=== PATIENT | male | born 1945 | race Hispanic/Latino ===

== ENCOUNTER 2018-07-05 15:38 | Inpatient (IN) | payer OTHER ==
[~2018-07-05] VITALS: Ht 175.3 cm; Wt 52.3 kg
[2018-07-05 16:31] LABS: BASOPHILS % (AUTO) 0.4 % (0.0-5.0); EOSINOPHILS % (AUTO) 0.6 % (0.0-8.0); HEMATOCRIT 30.2 % (42-54); LYMPHOCYTES % (AUTO) 7.8 % (21.0-51.0); MEAN CORPUSCULAR HEMOGLOBIN 33.9 pg (27.0-33.0); MEAN CORPUSCULAR VOLUME 102.6 fL (79-99); MONOCYTES % (AUTO) 3.9 % (3.0-13.0); NEUTROPHILS % (AUTO) 87.3 % (40.0-77.0); NUCLEATED RED BLOOD CELLS 0.1 % (0.0-0.19); PLATELET COUNT (AUTO) 204 K/uL (130-400); RED BLOOD CELL COUNT(AUTO) 2.94 MIL/uL (4.50-6.20); RED CELL DISTRIBUTION WIDTH 20.9 % (11.0-15.5); WHITE BLOOD COUNT (AUTO) 7.5 K/uL (4.8-10.8)
[2018-07-05 16:39] LABS: INR 1.58 (0.85-1.15); PARTIAL THROMBOPLASTIN TIME 39.4 SEC (26.3-35.5); PROTHROMBIN TIME 16.4 SEC (9.6-11.6)
[2018-07-05 16:44] LABS: CREATININE 3.3 mg/dL (0.5-1.5); POTASSIUM 3.7 mmol/L (3.5-5.1)
[2018-07-05 16:55] LABS: ALBUMIN 1.3 g/dL (3.5-5.0); BILIRUBIN,TOTAL 0.7 mg/dL (0.2-1.0); TOTAL PROTEIN, SERUM 4.7 g/dL (6.0-8.3)
[2018-07-05] MEDS ORDERED: ONDANSETRON HCL 4 MG/2 ML VIAL ONE (17:10)
[2018-07-05] MEDS ORDERED: MIDODRINE HCL 5 MG TABLET ONE (18:42)
[2018-07-05] MEDS ORDERED: MEROPENEM 1 GM VIAL ONE (19:12)
[2018-07-05] MEDS ORDERED: VANCOMYCIN 1GM+NS 250ML 250 ML IV ONE (19:47)
[2018-07-05 20:29] VITALS: BP 73/46
[2018-07-05] MEDS ORDERED: ALBUMIN (HUMAN) 25% 100 ML IV ONE (20:54)
[2018-07-05] MEDS ORDERED: ACETAMINOPHEN 325 MG TAB PO PRN ×2 (21:00)
[2018-07-05] MEDS ORDERED: ALBUMIN (HUMAN) 25% 100 ML IV SCH (21:00)
[2018-07-05] MEDS ORDERED: VANCOMYCIN PROTOCOL PER PHARMACY IV SCH (21:00)
[2018-07-05] MEDS ORDERED: ONDANSETRON HCL 4 MG/2 ML VIAL IVP PRN (21:00)
[2018-07-05] MEDS ORDERED: SODIUM CHLORIDE 0.9% 10 ML VIAL IVP PRN (21:00)
[2018-07-05] MEDS ORDERED: GLUCAGON 1MG KIT 1 MG ML IM PRN (21:15)
[2018-07-05] MEDS ORDERED: DEXTROSE 50%-WATER 50 ML DISP.SYRIN IV PRN (21:15)
[2018-07-05] MEDS ORDERED: HEPARIN SODIUM 5000UNIT/ML 1ML VIAL IJ SCH (21:45)
[2018-07-05 23:47] VITALS: BP 95/43
[2018-07-06] MEDS ORDERED: LEVO25TA9 PO (03:00)
[2018-07-06] MEDS ORDERED: SEVE800T7 PO (03:00)
[2018-07-06] MEDS ORDERED: POTA20TA12 PO (03:00)
[2018-07-06] MEDS ORDERED: FOLI0.8T22 PO (03:00)
[2018-07-06] MEDS ORDERED: MIDO10TA PO (03:00)
[2018-07-06] MEDS ORDERED: CALC0.253 PO (03:00)
[2018-07-06] MEDS ORDERED: CYAN250014 PO (03:00)
[2018-07-06] MEDS ORDERED: ASCO500W7 PO (03:00)
[2018-07-06] MEDS ORDERED: CHOL100034 PO (03:00)
[2018-07-06 03:41] VITALS: BP 80/40
[2018-07-06] MEDS: INSULIN R PO SS1 SQ SCH ×4 (06:04→19:44)
[2018-07-06 07:35] LABS: HEMATOCRIT 26.5 % (42-54); MEAN CORPUSCULAR HEMOGLOBIN 33.4 pg (27.0-33.0); MEAN CORPUSCULAR HGB CONC 32.2 g/dL (32.0-36.0); MEAN CORPUSCULAR VOLUME 103.7 fL (79-99); PLATELET COUNT (AUTO) 142 K/uL (130-400); RED BLOOD CELL COUNT(AUTO) 2.55 MIL/uL (4.50-6.20); RED CELL DISTRIBUTION WIDTH 21.7 % (11.0-15.5); WHITE BLOOD COUNT (AUTO) 13.1 K/uL (4.8-10.8)
[2018-07-06 07:46] VITALS: BP 73/34
[2018-07-06] MEDS ORDERED: MIDODRINE HCL 5 MG TABLET ONE (07:52)
[2018-07-06 08:02] LABS: CREATININE 3.3 mg/dL (0.5-1.5); MAGNESIUM 1.8 mg/dL (1.80-2.40); PHOSPHORUS 2.3 mg/dL (2.5-4.9); POTASSIUM 3.8 mmol/L (3.5-5.1); THYROID STIMULATING HORMONE 0.76 uIU/mL (0.36-3.74); URIC ACID 2.6 mg/dL (2.6-7.2)
[2018-07-06] MEDS: PANTOPRAZOLE SODIUM 40 MG TABLET.DR PO SCH (08:09)
[2018-07-06] MEDS: MIDODRINE HCL 5 MG TABLET PO SCH ×3 (08:09→19:44)
[2018-07-06 11:23] VITALS: BP 89/47
[2018-07-06 15:17] VITALS: BP 97/53
[2018-07-06] MEDS: MEROPENEM 1 GM VIAL IVP SCH (19:20)
[2018-07-06 20:11] VITALS: BP 82/44
[2018-07-06 23:40] VITALS: BP 85/44
[2018-07-07] MEDS: INSULIN R PO SS1 SQ SCH ×4 (04:00→21:00)
[2018-07-07 04:01] VITALS: BP 100/49
[2018-07-07 07:00] VITALS: BP 84/43
[2018-07-07 08:24] LABS: HEPATITIS B CORE IGM Negative (Negative); HEPATITIS Bs ANTIGEN SCREEN P Negative (Negative)
[2018-07-07] MEDS: MIDODRINE HCL 5 MG TABLET PO SCH ×3 (09:00→20:03)
[2018-07-07] MEDS: PANTOPRAZOLE SODIUM 40 MG TABLET.DR PO SCH (09:00)
[2018-07-07 11:00] VITALS: BP 90/48
[2018-07-07 16:00] VITALS: BP 76/43
[2018-07-07] MEDS ORDERED: VANCOMYCIN 1GM+NS 250ML 250 ML IV SCH (18:00)
[2018-07-07] MEDS: MEROPENEM 1 GM VIAL IVP SCH (19:46)
[2018-07-07 20:00] VITALS: BP 97/55
[2018-07-08] VITALS: BP 85/47
[2018-07-08 04:00] VITALS: BP 94/49
[2018-07-08] MEDS: INSULIN R PO SS1 SQ SCH ×4 (06:05→21:00)
[2018-07-08 08:00] VITALS: BP 90/50
[2018-07-08] MEDS: PANTOPRAZOLE SODIUM 40 MG TABLET.DR PO SCH (09:43)
[2018-07-08] MEDS: MIDODRINE HCL 5 MG TABLET PO SCH ×3 (09:43→22:11)
[2018-07-08 12:00] VITALS: BP 96/57
[2018-07-08] MEDS ORDERED: MORPHINE SULFATE 2 MG/ML 1ML SYG IVP PRN (12:15)
[2018-07-08 15:30] VITALS: BP 97/53
[2018-07-08 22:08] VITALS: BP 86/45
[2018-07-09 03:40] VITALS: BP 106/60
[2018-07-09] MEDS: INSULIN R PO SS1 SQ SCH ×4 (06:21→21:00)
[2018-07-09 08:00] VITALS: BP 80/44
[2018-07-09] MEDS: MIDODRINE HCL 5 MG TABLET PO SCH ×3 (09:00→21:00)
[2018-07-09] MEDS: PANTOPRAZOLE SODIUM 40 MG TABLET.DR PO SCH (09:00)
[2018-07-09 12:00] VITALS: BP 95/54
[2018-07-09 16:00] VITALS: BP 93/55
[2018-07-09] MEDS ORDERED: SODIUM CHLORIDE 0.9% 0 ML IV ONE (18:32)
[2018-07-09 19:35] VITALS: BP 90/53
[2018-07-10 03:00] VITALS: BP 95/50
[2018-07-10 08:00] VITALS: BP 97/51
[2018-07-10] MEDS: INSULIN R PO SS1 SQ SCH ×3 (11:30→20:15)
[2018-07-10 12:00] VITALS: BP 95/56
[2018-07-10 16:00] VITALS: BP 88/45
[2018-07-10 19:00] VITALS: BP 91/51
[2018-07-10 23:59] VITALS: BP 91/51
[2018-07-11 04:19] VITALS: BP 92/51
[2018-07-11] MEDS: INSULIN R PO SS1 SQ SCH ×3 (05:00→20:16)
[2018-07-11 07:30] VITALS: BP 101/65
[2018-07-11 19:00] VITALS: BP 76/37
[2018-07-12] VITALS: BP 99/56
[2018-07-12 04:00] VITALS: BP 101/49
[2018-07-12] MEDS: INSULIN R PO SS1 SQ SCH ×2 (04:55→11:30)
== END 2018-07-12 16:57 | disposition hospice, home (50) | DRG 871 ==
LOC: EDH 15:38 → EDHIP 18:08 → 2AH 20:09 → 3CH 07-07 17:41
PROVIDERS: ADMIT Internal Medicine Nephrology; ATTEND Internal Medicine Nephrology
PROC: 5A1D70Z Performance of Urinary Filtration, Intermittent, Less than 6 Hours Per Day (ICD-10-PCS; principal; 2018-07-05)
DX: A41.9 Sepsis, unspecified organism (principal); N18.6 End stage renal disease; I12.0 Hypertensive chronic kidney disease with stage 5 chronic kidney disease or end stage renal disease; I42.9 Cardiomyopathy, unspecified; Z68.1 Body mass index [BMI] 19.9 or less, adult; T68.XXXA Hypothermia, initial encounter; I25.10 Atherosclerotic heart disease of native coronary artery without angina pectoris; E11.22 Type 2 diabetes mellitus with diabetic chronic kidney disease; E03.9 Hypothyroidism, unspecified; I44.0 Atrioventricular block, first degree; J44.9 Chronic obstructive pulmonary disease, unspecified; R62.7 Adult failure to thrive; Z66 Do not resuscitate; Z51.5 Encounter for palliative care; Z86.010 Personal history of colon polyps; Z86.19 Personal history of other infectious and parasitic diseases; Z91.19 Patient's noncompliance with other medical treatment and regimen; Z95.1 Presence of aortocoronary bypass graft; Z99.2 Dependence on renal dialysis; Z79.84 Long term (current) use of oral hypoglycemic drugs
CPT/HCPCS: 36415; 71045; 80048; 80053; 82550; 82948; 83605; 83735; 83874; 84100; 84443; 84484; 84550; 85025; 85027; 85610; 85730; 86704; 86705; 86706; 87040; 87340; 87520; 90935; 93005; A4218; G0378; J1644; J2185; J2405; J3370; P9046